=== PATIENT | male | born 1970 | race Caucasian/White ===

== ENCOUNTER 2021-12-27 15:07 | Outpatient (CLI) | payer BC | END 2021-12-27 15:08 | disposition home or self-care (01) | LOC: ULT 15:07 | PROVIDERS: ATTEND Physician Assistant | DX: R59.1 Generalized enlarged lymph nodes (principal) ==

== ENCOUNTER 2022-01-27 08:27 | Outpatient (CLI) | payer BC | END 2022-01-27 08:28 | disposition home or self-care (01) | LOC: BICCT 08:27 | PROVIDERS: ATTEND Internal Medicine Medical Oncology | DX: C85.90 Non-Hodgkin lymphoma, unspecified, unspecified site (principal); R59.0 Localized enlarged lymph nodes; E27.8 Other specified disorders of adrenal gland | CPT/HCPCS: 70491; 71260; 74177 ==